=== PATIENT | male | born 1980 | race Caucasian/White ===

== ENCOUNTER 2023-12-19 18:15 | Emergency (ER) | payer OTHER, SELFPAY ==
[2023-12-19 18:22] VITALS: BP 162/81; PULSE 75; RESP 16; TEMP 36.7; O2SAT 96; BMI 34.8
--- NOTE | 2023-12-19 18:29 | W.ED.WOUNDLC ---
HPI - Wound/Laceration General: Chief Complaint: Wound/Laceration Stated Complaint: Lac on left hand Time Seen by Provider: 12/19/23 18:18 Source: patient Mode of arrival: ambulatory Limitations: no limitations History of Present Illness: 43-year-old male states he had a pocket knife in his pocket. His right hand in his pocket the knife had opened and lacerated the tip of his right middle finger. No bleeding at this time he denies any pain denies any other injuries Associated symptoms: Denies chills, fever(s), nausea or vomiting Related Data Allergies Allergy/AdvReac Type Severity Reaction Status Date / Time Penicillins Allergy Unknown Unknown Verified 12/19/23 18:25 Review of Systems Const: Denies: fever(s), chills, body aches or change in appetite ENMT: Denies: throat pain Card: Denies: chest pain Resp: Denies: dyspnea GI: Denies: abdominal pain, nausea or vomiting Musc: Denies: neck pain or back pain Skin/Breast: Denies: rash Physical Exam Const: COMMON NORMALS: no acute distress, patient oriented x3 and healthy appearing HENMT: COMMON NORMALS: normocephalic and atraumatic HEAD & SCALP: normocephalic and atraumatic Neck/C-Spine: COMMON NORMALS: full ROM and supple Chest: COMMONS NORMALS: normal inspection of the chest Resp: COMMON NORMALS: normal respiratory effort Cardio: COMMON NORMALS: regular rate, regular rhythm and No murmurs present (Cardio) RATE: regular rate RHYTHM: regular rhythm Extremity: COMMON NORMALS: full ROM Neuro: COMMON NORMALS: patient oriented x3, moves all extremities and no focal motor deficits Psych: COMMON NORMALS: mental status grossly normal, Normal thought process present and cooperative THOUGHT PROCESS: Normal thought process present Skin: COMMON NORMALS: no rashes or lesions noted NARRATIVE SKIN EXAM: 1 cm superficial laceration tip of middle finger GENERAL SKIN EXAM: no rashes or lesions noted Procedures Laceration Laceration 1: Site: hand Side (If applicable): right Size (cm): 1 Description: linear Depth: simple, single layer Pre-repair: wound explored, irrigated extensively and deep structures intact Skin layer closed with: other (dermabond) Course Vital Signs: Vital signs: Vital Signs Temperature 98.1 F 12/19/23 18:22 Pulse Rate 71 12/19/23 18:31 Respiratory Rate 18 12/19/23 18:31 Blood Pressure 162/81 12/19/23 18:22 Pulse Oximetry 95 12/19/23 18:31 Oxygen Delivery Me thod Room Air 12/19/23 18:31 MDM - Wound/Laceration Medical Decision Making Patient presents with laceration to his middle finger at superficial nature was able to repair with tissue adhesive he refused tetanus he stable for discharge follow-up PCP return if worsening No radiology studies performed this visit Discharge Plan Discharge Patient Disposition: Home Clinical Impression: Laceration Condition: Stable Discharge Orders: Discharge ED (Routine); Ordered 12/19/23 Ordered By: Butch Anne Discharge Diet: Advance as tolerated Discharge Activity: Resume usual activity Patient Instructions: Laceration (ED), Skin Adhesive Care (ED) Coding Level of Care Code 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
[2023-12-19 18:31] VITALS: PULSE 71; RESP 18; O2SAT 95
[2023-12-19 18:44] VITALS: BP 143/71; PULSE 76; O2SAT 94
== END 2023-12-19 18:45 | disposition home or self-care (01) ==
PROVIDERS: Emergency Provider Emergency Medicine
DX: S61.212A Laceration without foreign body of right middle finger without damage to nail, initial encounter (principal); W26.0XXA Contact with knife, initial encounter
CPT/HCPCS: 12001; 99282